=== PATIENT | female | born 1980 | race Caucasian/White ===

== ENCOUNTER 2017-09-19 08:37 | Outpatient (CLI) | payer OTHER | END 2017-09-19 08:38 | disposition home or self-care (01) | LOC: BICULT 08:37 | PROVIDERS: ATTEND Urology | DX: N31.9 Neuromuscular dysfunction of bladder, unspecified (principal) | CPT/HCPCS: 36415; 76770; 82565 ==

== ENCOUNTER 2017-10-23 17:17 | Outpatient (CLI) | payer OTHER ==
[2017-10-23 17:48] LABS: Hemoglobin 13.7 g/dL (12.0-16.0); Mean Corpuscular Hemoglobin 30.1 pg (27.0-31.0); Mean Corpuscular Volume 93.9 fl (81.0-99.0); Mean Platelet Volume 7.9 fL (7.4-10.4); Platelet Count 416 thou/uL (130-400); RBC Distribution Width 11.8 % (11.5-14.5); Red Blood Cell (RBC) Count 4.56 mill/uL (4.20-5.40)
[2017-10-23 18:11] LABS: BHCG - Serum Negative (NEGATIVE); Pregs Control Background? CLEAR/WHITE (CLR/WHITE); Pregs Control Bar Appear? YES (CONTROL BAR)
== END 2017-10-23 17:18 | disposition home or self-care (01) ==
LOC: LABBT 17:17
PROVIDERS: ATTEND Urology
DX: Z01.818 Encounter for other preprocedural examination (principal); R32 Unspecified urinary incontinence; N93.9 Abnormal uterine and vaginal bleeding, unspecified
CPT/HCPCS: 71046; 81001; 84703; 85027; 87086

== ENCOUNTER 2017-10-29 06:48 | Day surgery (SDC) | payer OTHER ==
[2017-10-23 17:40] VITALS: BMI 29.8
--- NOTE | 2017-10-23 17:59 | RAD ---
TWO VIEWS OF THE CHEST: 10/23/17 COMPARISON: None. HISTORY: Preoperative radiograph. FINDINGS: Two views of the chest show normal sized cardiomediastinal silhouette. There is no evidence of consol idation, mass, or pleural effusion. The bones are unremarkable. IMPRESSION: No evidence of acute cardiopulmonary disease. POS: [facility]
[2017-10-29] MEDS ORDERED: Levofloxacin 500 mg/D5W 100 ml Premix Bag ONE (07:09)
[2017-10-29] MEDS ORDERED: Midazolam HCl 2 mg/2 ml Vial ONE (09:03)
[2017-10-29] MEDS ORDERED: Lidocaine 1% (PF) 30 ML VIAL ONE (09:07)
[2017-10-29] MEDS ORDERED: Bupivacaine 0.25% HCL 30 ML VIAL ONE (09:07)
[2017-10-29] MEDS ORDERED: Fentanyl 100 MCG/2 ML VIAL ONE (09:09)
[2017-10-29] MEDS ORDERED: Ketorolac Tromethamine 30 MG/ML VIAL ONE (11:48)
[2017-10-29] MEDS ORDERED: Dexamethasone 20 MG/5 ML VIAL ONE ×2 (11:48)
[2017-10-29] MEDS ORDERED: PROPOFOL 200 MG/20 ML VIAL ONE (11:48)
[2017-10-29] MEDS ORDERED: Lidocaine 1% PF 5 ML VIAL ONE (11:48)
[2017-10-29] MEDS ORDERED: Ondansetron HCl/PF 4 MG/2 ML Vial ONE (11:48)
--- NOTE | 2017-10-30 14:00 | OP ---
DATE OF PROCEDURE: 10/29/2017 PREOPERATIVE DIAGNOSIS: Stress incontinence. POSTOPERATIVE DIAGNOSIS: Stress incontinence. PROCEDURE: Cystoscopy with Coaptite urethral bulking. SURGEON: Dr. Solano. ANESTHESIA: IV sedation with local anesthetic. COMPLICATIONS: No complications. DRAINS: No drain remaining. ESTIMATED BLOOD LOSS: Minimal blood loss. SPECIMENS: No specimens. INDICATIONS: The patient is a 36-year-old female with multiple urinary issues to include stress inco ntinence with a low UPP, so she was set up for urethral bulking. DESCRIPTION OF PROCEDURE: The patient was brought into the room by Anesthesia, laid on table in supi ne position. After receiving IV sedation, her legs were placed in lithotomy and her perineum was pre pped and draped in sterile fashion using periurethral block of 10 mL lidocaine-Marcaine mixture. Her urethra was anesthetized and then the cystoscope inspected the bladder and found no lesions. Then s itting within the urethra itself, Coaptite was injected in multiple quadrants for a total of 4 mL whe re good coaptation was noted. With a very full bladder, the patient coughed and still noted some paras kage, so I did drain the bladder and attempted this again and no leakage was noted with the patient's cough. So, at this time, a 12-Syrian catheter was used to drain the bladder down to a smaller capac ity and then removed in its entirety and she was fully awakened and transferred to the day stay in st able condition.
== END 2017-10-29 11:00 | disposition home or self-care (01) ==
LOC: SDC 06:48
PROVIDERS: ATTEND Urology
PROC: 0TVD8ZZ Restriction of Urethra, Via Natural or Artificial Opening Endoscopic (ICD-10-PCS; principal; 2017-10-29)
DX: N39.46 Mixed incontinence (principal); R35.0 Frequency of micturition; R35.1 Nocturia; Z98.890 Other specified postprocedural states; Z87.440 Personal history of urinary (tract) infections
CPT/HCPCS: 71046; J1100; J1885; J1956; J2001; J2250; J2405; J2704; J3010; L8606; S0020